=== PATIENT | male | born 1980 | race Hispanic/Latino ===

== ENCOUNTER 2021-08-27 00:02 | Emergency (ER) | payer BC ==
[2021-08-27] MEDS ORDERED: LIDOCAINE 1% MPF 30 ML VIAL ONE (01:39)
--- NOTE | 2021-08-27 02:48 | ER ---
Nurse's Notes [facility] Name: Elias Eden Age: 40 yrs Sex: Male : 1980 Arrival Date: 08/27/2021 Time: 00:13 Bed 19 Private MD: Diagnosis: Unspecified injury of head, initial encounter;Facial laceration Presentation: 08/27 00:20 Chief complaint: EMS states: EMS states, patient has been drinking since 1500 hours tk1 yesterday, fell in backyard at approximately 2230 hours onto a yard ornament. Patient believed he loss consciousness because he doesn't remember getting into his car and driving to the store. Laceration to left forehead and left upper lip. Dressing to forehead. Bleeding controlled. Coronavirus screen: Client denies travel out of the [place] in the last 14 days. At this time, the client does not indicate any symptoms associated with coronavirus-19. Ebola Screen: Patient negative for fever greater than or equal to 101.5 degrees Fahrenheit, and additional compatible Ebola Virus Disease symptoms Patient denies exposure to infectious person. Patient denies travel to an Ebola-affected area in the 21 days before illness onset. Complicating Factors: There are no complicating factors for this patient. Initial Sepsis Screen: Does the patient meet any 2 criteria? No. Patient's initial sepsis screen is negative. Does the patient have a suspected source of infection? No. Patient's initial sepsis screen is negative. Risk Assessment: Do you want to hurt yourself or someone else? Patient reports no desire to harm self or others. Onset of symptoms was August 26, 2021 at 22:30. Mechanism of Injury: Fall approximately 3 feet. 00:20 Method Of Arrival: EMS tk1 00:20 Acuity: LAINEY 4 tk1 Triage Assessment: 00:26 General: Appears in no apparent distress. well groomed, well developed, well nourished, tk1 Behavior is cooperative, Slurred. Admits to ETOH consumption since 1500 hours yesterday.. Pain: Denies pain. Injury Description: Laceration sustained to left forehead. Historical: - Allergies: 00: No Known Allergies; tk1 - Home Meds: 00: None [Active]; tk1 - PMHx: 00: None; tk1 - Immunization history:: Adult Immunizations up to date, Last tetanus immunization: up to date < 5 years ago. - Social history:: Smoking status: Patient denies any tobacco usage or history of. Screenin:00 Abuse screen: Denies threats or abuse. Denies injuries from another. Nutritional tk1 screening: No deficits noted. Tuberculosis screening: No symptoms or risk factors identified. Fall Risk None identified. Assessment: 00:31 Reassessment: See Triage Assessment. tk1 01:30 Reassessment: No changes from previously documented assessment. Patient and/or family tk1 updated on plan of care and expected duration. Pain level reassessed. Patient is alert, oriented x 3, equal unlabored respirations, skin warm/dry/pink. at bedside. Dressing to forehead dry and intact. Patient denies pain at this time. 02:15 Reassessment: JEAN CLAUDE Jennings in for suturing. tk1 02:51 Reassessment: Cleansed patient's face with soap and water. Patient denies pain. tk1 Tolerated well. Laceration to left upper lip and left forehead closed with edges well approximated. Vital Signs: 00:20 BP 115 / 86 LA Sitting (auto/reg); Pulse 107 MON; Resp 20 S; Temp 98.3(O); Pulse Ox tk1 100% on R/A; Weight 69.85 kg (R); Height 5 ft. 6 in. (167.64 cm) (R); Pain 0/10; 00:26 BP 115 / 86 LA Supine (auto/reg); Pulse 107 MON; Resp 20 S; Temp 98.3(O); Pulse Ox 100% tk1 on R/A; Pain 0/10; 01:00 BP 110 / 78 LA Supine (auto/reg); Pulse 108 MON; Resp 18 S; Pulse Ox 99% on R/A; Pain tk1 0/10; 01:00 BP 105 / 74 RA Supine (auto/reg); Pulse 99 MON; Resp 16 S; Pulse Ox 99% on R/A; Pain tk1 0/10; 00:20 Body Mass Index 24.86 (69.85 kg, 167.64 cm) tk1 ED Course: 00:13 Patient arrived in ED. kc5 00:15 Dick Sapp PA is PHCP. shell 00:15 Agusto Hall DO is Attending Physician. shell 00:20 Tameka Marcum is Primary Nurse. tk1 00:25 Maintain EMS IV. Dressing intact. Good blood return noted. Site clean \T\ dry. Gauge \T\ tk 1 site: 20g left forearm. 00:26 Triage completed. tk1 00:26 Arm band placed on right wrist. tk1 01:00 Patient has correct armband on for positive identification. Bed in low position. Call tk1 light in reach. Side rails up X2. Adult w/ patient. Pulse ox on. NIBP on. 01:00 No provider procedures requiring assistance completed. tk1 01:44 Head C Spine Mpr Wo Con In Process Unspecified. EDMS 03:08 IV discontinued, intact, bleeding controlled, No redness/swelling at site. Pressure tk1 dressing applied. Administered Medications: 02:00 Drug: Lidocaine (1 %) 20 ml {Note: Pulled from [employer] for JEAN CLAUDE Jennings.} Volume: 20 ml; tk1 Route: Infiltration; Outcome: 02:47 Discharge ordered by MD. shell 03:08 Discharged to home ambulatory, with family. tk1 03:08 Condition: stable 03:08 Discharge instructions given to patient, Instructed on discharge instructions, follow up and referral plans. wound care, Suture removal. 03:09 Patient left the ED. tk1 Signatures: Dispatcher [employer] EDMS Dick Sapp PA PA jmm Clark, Kasey kc5 Tameka Marcum tk1 Corrections: (The following items were deleted from the chart) 02:51 02:43 Reassessment: JEAN CLAUDE Jennings in fot suturing. tk1 tk1
--- NOTE | 2021-08-27 02:48 | EDPHYS ---
Physician Documentation [facility] Name: Elias Eden Age: 40 yrs Sex: Male : 1980 Arrival Date: 08/27/2021 Time: 00:13 Bed 19 Private MD: ED Physician Agusto Hall HPI: 08/27 00:19 This 40 yrs old Male presents to ER via EMS with complaints of Laceration To [facility] Head. 00:19 The patient or guardian reports injury, a laceration. The complaints affect the [facility] forehead. Onset: The symptoms/episode began/occurred acutely, just prior to arrival. Associated signs and symptoms: Loss of consciousness: This patient experience a loss of consciousness, Pertinent positives: loss of conciousness, patient admits to or smells of alcohol consumption. It is unknown whether or not the patient has had similar symptoms in the past. Is a 40-year-old male with no chronic medical conditions presents emerged department with a laceration to his forehead and lip which occurred prior to arrival. Patient had an unwitnessed fall. Cannot recall the injury.. Historical: - Allergies: 00:26 No Known Allergies; tk1 - Home Meds: 00:26 None [Active]; tk1 - PMHx: 00:26 None; tk1 - Immunization history:: Adult Immunizations up to date, Last tetanus immunization: up to date < 5 years ago. - Social history:: Smoking status: Patient denies any tobacco usage or history of. ROS: 00:19 Constitutional: Negative for fever, chills, and weight loss, Cardiovascular: Negative jmm for chest pain, palpitations, and edema, Respiratory: Negative for shortness of breath, cough, wheezing, and pleuritic chest pain. 00:19 Skin: Positive for laceration(s). 00:19 Neuro: Positive for headache. 00:19 All other systems are negative. Exam: 00:19 Constitutional: This is a well developed, well nourished patient who is awake, alert, jmm and in no acute distress. 00:19 Eyes: EOMI, no conjunctival erythema appreciated ENT: Moist Mucus Membranes Neck: Trachea midline, Supple Chest/axilla: Normal chest wall appearance and motion. Cardiovascular: Regular rate and rhythm. No edema appreciated Respiratory: Normal respirations, no respiratory distress appreciated Abdomen/GI: Non distended, soft Back: Normal ROM 00:19 Head/face: Noted is a laceration(s). 00:19 Skin: 5 cm laceration to the forehead, 2 cm laceration noted to the left philtrum. 00:19 Neuro: Orientation: is normal, Mentation: is normal, Memory: is normal. 00:19 Psych: Behavior/mood is pleasant, cooperative. Vital Signs: 00:20 BP 115 / 86 LA Sitting (auto/reg); Pulse 107 MON; Resp 20 S; Temp 98.3(O); Pulse Ox tk1 100% on R/A; Weight 69.85 kg (R); Height 5 ft. 6 in. (167.64 cm) (R); Pain 0/10; 00:26 BP 115 / 86 LA Supine (auto/reg); Pulse 107 MON; Resp 20 S; Temp 98.3(O); Pulse Ox 100% tk1 on R/A; Pain 0/10; 01:00 BP 110 / 78 LA Supine (auto/reg); Pulse 108 MON; Resp 18 S; Pulse Ox 99% on R/A; Pain tk1 0/10; 01:00 BP 105 / 74 RA Supine (auto/reg); Pulse 99 MON; Resp 16 S; Pulse Ox 99% on R/A; Pain tk1 0/10; 00:20 Body Mass Index 24.86 (69.85 kg, 167.64 cm) tk1 Laceration: 02:35 Wound Repair of 5cm ( 2.0in ) subcutaneous laceration to forehead. Distal [facility] neuro/vascular/tendon intact. Anesthesia: Local anesthetic administered with 2 mls of 1% lidocaine. Wound prep: Simple cleansing with betadine by me. Skin closed with 9 5-0 Prolene using simple sutures and sterile technique. Patient tolerated well. 02:35 Wound Repair of 2cm ( 0.8in ) subcutaneous laceration to philtrum. Distal m neuro/vascular/tendon intact. Anesthesia: Local anesthetic administered with 1 mls of 1% lidocaine. Wound prep: Simple cleansing with betadine by me. Skin closed with 4 5-0 Prolene using simple sutures and sterile technique. Patient tolerated well. MDM: 00:19 Patient medically screened. shell 02:36 Data reviewed: vital signs, nurses notes. Counseling: I had a detailed discussion with shell the patient and/or guardian regarding: the historical points, exam findings, and any diagnostic results supporting the discharge/admit diagnosis, radiology results, the need for outpatient follow up, to return to the emergency department if symptoms worsen or persist or if there are any questions or concerns that arise at home. 02:46 Data reviewed: radiologic studies, CT scan. ED course: Patient given head injury and [facility] wound infection return precautions.. 08/27 01:19 Order name: Head C Spine Mpr Wo Con EDMS Administered Medications: 02:00 Drug: Lidocaine (1 %) 20 ml {Note: Pulled from [employer] for PA. Dick} Volume: 20 ml; tk1 Route: Infiltration; Disposition: 07:25 Co-signature as Attending Physician, Agusto Hall DO I agree with the assessment and ms3 plan of care. Disposition Summary: 08/27/21 02:47 Discharge Ordered Location: Home [facility] Condition: Stable [facility] Diagnosis - Unspecified injury of head, initial encounter jm - Facial laceration [facility] Followup: [facility] - With: Private Physician - When: 5 - 6 days - Reason: Recheck today's complaints, Continuance of care, Staple/Suture removal, Re-evaluation by your physician Discharge Instructions: - Discharge Summary Sheet [facility] - Head Injury, Adult jm - Facial Laceration [facility] Forms: - Medication Reconciliation Form [facility] - Thank You Letter [facility] - Antibiotic Education jmm - Prescription Opioid Use [facility] Signatures: Dispatcher [employer] EDMS Dick Sapp PA PA jmm Sims, Marcus, DO DO ms3 Tameka Marcum tk1 Corrections: (The following items were deleted from the chart) 01:17 01:17 CT HEAD,C-SPINT W/O ordered. EDMS EDMS 01:44 01:34 Head C Spine MPR Wo Con+CT.RAD.BRZ ordered. EDMS EDMS
[2021-08-27 03:48] VITALS: TEMP 98.3
[2021-08-27 03:51] VITALS: BP 105/74; O2SAT 99
--- NOTE | 2021-08-28 23:02 | RAD REPORT ---
EXAM DESCRIPTION: CT - Head C Spine Mpr Wo Con - 08/27/2021 6:34 am CLINICAL HISTORY: 40 years Male Trauma, LOC TECHNIQUE: Noncontrast CT head and cervical spine with coronal and sagittal reformats. All CT scans at this facility use dose modulation, iterative reconstruction, and/or weight based dosing when appro priate to reduce radiation dose to as low as reasonably achievable. COMPARISON: None. FINDINGS: HEAD: Brain: No intracranial hemorrhage, midline shift, mass or mass effect. No obvious large acute territo rial infarction. Ventricles: No hydrocephalus. Orbits: Unremarkable. Sinus: Visualized portions are clear. Mastoid: clear . Osseous: Unremarkable. Soft tissues: Mild left frontal scalp soft tissue swelling and laceration. CERVICAL SPINE: Vertebra: No acute fracture. Canal: No high grade spinal canal stenosis. Alignment: Straightening of the normal cervical lordosis without spondylolisthesis. Soft tissues: Unremarkable. Lungs: Visualized lung apices are clear. IMPRESSION: Head: 1. No acute intracranial findings. 2. Mild left frontal scalp soft tissue swelling and laceration. 3. No acute fracture. Cervical spine: 1. No acute cervical spine pathology. Electronically signed by: Neel Card MD 08/27/2021 2:39 AM CDT Due to temporary technical issues with the PACS/Fluency reporting system, reports are being signed by the in house radiologists without review as a courtesy to insure prompt reporting. The interpreting radiologist is fully responsible for the content of the report.
== END 2021-08-27 03:09 | disposition home or self-care (01) ==
LOC: ER 00:02
PROC: 0JQ10ZZ Repair Face Subcutaneous Tissue and Fascia, Open Approach (ICD-10-PCS; principal; 2021-08-27)
PROC: 0CQ0XZZ Repair Upper Lip, External Approach (ICD-10-PCS; 2021-08-27)
DX: S01.81XA Laceration without foreign body of other part of head, initial encounter (principal); S01.511A Laceration without foreign body of lip, initial encounter; W19.XXXA Unspecified fall, initial encounter
CPT/HCPCS: 70450; 72125; 99284